=== PATIENT | male | born 1940 | race Caucasian/White ===

== ENCOUNTER 2019-02-24 16:51 | Outpatient (REF) | payer OTHER, SELFPAY ==
[2019-02-24 20:46] LABS: Anion Gap 12.3 mmol/L (3-11); BUN 17 mg/dL (7-18); CO2 26.7 mmol/L (21.0-32.0); CREATININE 1.33 mg/dL (0.70-1.30); Calcium 9.3 mg/dL (8.5-10.1); Chloride 101 mmol/L (98-107); Cholesterol 111 mg/dL (50-200); Estimated GFR 51.87 (mL/min/1.73m2); Glucose 103 mg/dL (70-100); HDL Cholesterol 28 mg/dL (40-60); LDL CHOLESTEROL 63 mg/dL (<100); Potassium 4.4 mmol/L (3.5-5.1); Sodium 140 mmol/L (136-145); Triglyceride 159 mg/dL (30-150)
[2019-02-24 20:47] LABS: HCT 38.5 % (40.0-50.0); HGB 12.8 g/dL (13.5-17.5); Mean Corp. HGB Concentration 33.2 g/dL (32.0-36.0); Mean Corpuscular Hemoglobin 29.5 pg (27.0-33.0); Mean Corpuscular Volume 88.7 fL (80-95); Mean Platelet Volume 10.4 fL (8.0-11.0); Platelet Count 267 x1000/uL (130-400); RBC 4.34 m/cumm (4.50-6.00); RBC Distribution Width 12.7 % (11.8-14.1); White Blood Cell Count 8.26 k/cumm (4.4-10.8)
== END 2019-02-24 17:11 ==
LOC: NCHCN 16:51
PROVIDERS: PCP Family Medicine; Visit Provider Family Medicine
DX: I10 Essential (primary) hypertension (principal); E11.9 Type 2 diabetes mellitus without complications
CPT/HCPCS: 80048; 80061; 83721; 85027

== ENCOUNTER 2019-03-09 10:51 | Day surgery (SDC) | payer OTHER, SELFPAY ==
[2019-03-04 11:20] VITALS: BP 137/81; PULSE 80; RESP 16; TEMP 35.7; O2SAT 98
--- NOTE | 2019-03-08 19:12 | W.PIPPEYE ---
History of Present Illness Chief Complaint: Progressive decreased vision, right eye Narrative: The patient is a 78-year old male with history of progressive decreased vision in both eyes at both distance and near. He notes fuzzy vision all the time and cannot see well enough to drive at night. On examination he was noted to have best corrected vision of 20/40 in each eye in the presence of moderate nuclear cataracts OU. 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 The option of implanting a trabecular micro-bypass stent at the time of cataract surgery was offered to the patient and he wished to proceed. This will be performed if the anatomy is favorable. NOTE: The Chief Complaint, HPI, Past Medical History, Past Surgical History, Family History, Social History, Medications, and complete Ophthalmic Exam with detailed Assessment and Plan have already been documented in the patient's outpatient ophthalmic record and are not covered again in detail here. PFSH Social History Smoking/Tobacco Use Status: Never Alcohol Intake: never Drug use: Never Substance use type: does not use Do you feel safe at home: Yes Do you feel safe in your relationship?: Yes Meds Home Medications Medication Instructions Recorded Confirmed Type losartan-hydrochlorothiazide 1 tab PO DAILY 03/03/19 03/03/19 History metformin 1,000 mg PO BID 03/03/19 03/03/19 History naproxen 500 mg PO BID PRN 03/03/19 03/03/19 History sitagliptin [Januvia] 100 mg PO DAILY 03/03/19 03/03/19 History Allergies Allergy/AdvReac Type Severity Reaction Status Date / Time honey Allergy Unknown Verified 03/03/19 11:31 Exam OCULAR EXAM:: Most recent ocular examination is significant for corrected visual acuity of 20/40 in each eye. Intraocular pressure is 15 OD, 14 OS. Extraocular motility is normal. Pupils equal, round, and reactive without afferent pupillary defect slit-lamp examination is significant for pupils dilating to 5 mm OD, 4.5 mm OS. 2-3+ nuclear cataract is present OU. Dilated funduscopic examination reveals disc cupping of 0.1 OU with normal vessels. There is some macular RPE dropout in both eyes. Peripheral retina and vitreous is normal OU. BRIGHTNESS ACUITY TESTING (BAT):: Brightness acuity testing of the right eye often is 20/40. On the low setting is 20/60, on the medium setting is 20/70. On the high setting brightness acuity testing is 20/70. Assessment and Plan (1) Primary open angle glaucoma (POAG) of right eye, mild stage: Current visit: No Status: Chronic Assessment: Primary open-angle glaucoma, mild stage, controlled on one medication Plan: Trabecular micro-bypass stent following cataract extraction and lens implantation if the anatomy is favorable. (2) Nuclear sclerotic cataract of right eye: Current visit: No Status: Acute Assessment: Visually significant cataract, right eye. Plan: Cataract extraction with intraocular lens implantation, right eye Note: NOTE:: The details of the planned surgery, including the risks, indications,limitations,expectations,outcome and possible complications were explained to the patient. The patient understands the complications including, but not limited to: infection, hemorrhage, posterior dislocation of the lens or nuclear fragments which may require the intervention of a vitreoretinal surgeon, possible loss of the eye, or from anesthetic complications. The patient has been made aware of the option of not having surgery, that vision following surgery may not be equal to that prior to surgery, and that the planned surgery may not achieve the intended results. Following this discussion, which the patient appeared to understand, the patient wishes to proceed with cataract surgery with lens implantation of the affected eye to improve and maximize vision.
--- NOTE | 2019-03-08 19:21 | W.PM.DSUDISC ---
Discharge Plan Disposition Patient Disposition: HOME Condition: Stable Discharge Details Attending Provider: Michael Corbin Primary Care Provider: MUSA ARTEAGA Home Meds and New Rx's Prescriptions: No Action metformin 500 mg Tablet 1,000 mg PO BID RF: 0 naproxen 500 mg Tablet 500 mg PO BID PRNRF: 0 losartan-hydrochlorothiazide 100-12.5 mg Tablet 1 tab PO DAILY RF: 0 Januvia 100 mg Tablet 100 mg PO DAILY RF: 0 Discharge Instructions Stand Alone Forms: Post-op Topical Cataract, Shannon Moore (DSU) Discharge Orders Discharge Orders: Discharge Order (Routine); Ordered 03/09/19 Ordered By: Michael Corbin DS: Diagnosis Discharge Diagnosis (1) Primary open angle glaucoma (POAG) of right eye, mild stage: Status: Chronic (2) Nuclear sclerotic cataract of right eye: Status: Acute (3) Status post cataract extraction and insertion of intraocular lens of right eye: Status: Chronic
[2019-03-09] MEDS: Tetracaine 0.5% 4 ML BTL OD ×4 (11:21→12:14)
[2019-03-09] MEDS: Tropicam./Phenyleph. (1/2.5%) 5 ML BTL OD ×3 (11:21→11:30)
[2019-03-09] MEDS: Lidocaine 1% Pres-Free 5 ML VIAL (12:12)
[2019-03-09] MEDS: Balanced Salt Soln.-PLUS 500 ML BAG (12:12)
[2019-03-09] MEDS: Povidone-Iodine Ophth 30 ML BTL ×2 (12:14→12:59)
[2019-03-09] MEDS: Lidocaine 2% Jelly 6 ML SYR (12:14)
[2019-03-09] MEDS: Trypan Blue 0.06% 0.5 ML SYR (12:29)
--- NOTE | 2019-03-09 13:09 | ROE_ITS ---
Date of service: 03/09/19 Time of Service: 13:05 Operative Note PRE-OP DIAGNOSIS: Cataract, with open angle glaucoma right eye POST-OP DIAGNOSIS: same PROCEDURE: 1. Cataract extraction using phacoemulsification with intraocular lens implant, right eye 2. Insertion of anterior segment aqueous drainage device (Glaukos iStent inject x 1) into trabecular meshwork, right eye 3. Capsular staining with VisionBlue SURGEON: Michael Corbin ANESTHESIA: MAC and local (sub-tenon's anesthetic infiltration) PATHOLOGY: none sent COMPLICATIONS: None Patient was transported to: same day Patient's condition: stable Implants: 1. [employer] / [employer] Tecnis ZCB00 intraocular lens 2. Glaukos iStent inject trabecular micro-bypass stent x 1 Indications: 1. Progressive decreased vision due to cataract, right eye 2. Primary open angle glaucoma, right eye, mild stage 3. Poor red reflex secondary to dense cataract Procedure Description: CATARACT SURGERY OPERATIVE REPORT PREOPERATIVE DIAGNOSIS: 1. Nuclear cataract, right eye 2. Poor red reflex, right eye secondary to #1 3. Primary open-angle glaucoma, right eye, mild stage POSTOPERATIVE DIAGNOSIS: Same OPERATION: 1. Cataract extraction using phacoemulsification with posterior chamber intraocular lens implant, right eye. 2. Insertion of multiple anterior segment aqueous drainage devices (Glaukos iStent inject x 1) into trabecular meshwork, right eye 3. Capsular staining with VisionBlue IOL: IOL Health Care Aide/Model: J[employer]Neotropix Vision / MULU Tecnis ZCB00 IOL Power: + 20.0 diopters IOL Serial Number: [id number] Optic Diameter: 6.0mm Haptic/Overall Diameter: 13.0mm PHACO INFO: Dominik [employer]urion Vision System with OZil and Active Fluidics Cumulative Dispersed Energy (CDE): 17.27 seconds TRABECULAR MICRO-BYPASS STENT INFO: Glaukos iStent inject x 1 Reference Number: [id number] Serial Number: [id number] SURGEON: Michael Corbin MD, MAX ANESTHESIA: Monitored Anesthesia Care (MAC), with local sub-tenon's anesthetic infiltration COMPLICATIONS: None SPECIMENS: None INDICATIONS FOR PROCEDURE: The patient is a 78-year-old gentleman with history of progressive decreased vision in both secondary to the development of significant bilateral nuclear cataracts. He also has primary open-angle glaucoma, mild stage, that is controlled on one medication. The option of cataract surgery was offered to the patient and he felt he was symptomatic enough that he wished to proceed. In addition, he desired implantation of a prior micro-bypass stent at the time of cataract surgery. PROCEDURE: The correct surgical eye was identified and marked as the right eye and the pupil was dilated in the preoperative area using mydriatics and cycloplegics. The dilated pupil size was 6mm. No sedation was given. The patient was brought to the operating room where cardiopulmonary monitoring was instituted and surgical time-out was performed, confirming the correct operative eye and IOL power. Topical anesthesia was administered and ophthalmic povidone-iodine 5% was instilled into the conjunctival fornices. Lidocaine gel was applied to the cornea and the cherie-ocular area was prepped with Betadine 10% solution and draped in the usual sterile fashion for intraocular surgery, including an aperture drape. A Tegaderm transparent film dressing was cut in half and used to cover the lashes and lid margins. Care was taken to sequester the lashes and lid margins under the Tegaderm dressing. A lid speculum was placed between the lids of the operative eye and the Neville-Luz operating microscope was maneuvered into position. Saba scissors were then used to make a conjunctival buttonhole approximately 6mm posterior to the limbus in the inferonasal quadrant. Blunt dissection was carried out to expose bare sclera, and a blunt-tipped sub-tenon?s anesthesia cannula was introduced and passed posteriorly along the globe where non- preserved plain lidocaine was injected into posterior sub-Tenon?s space. A sideport knife was used to make a paracentesis port in the inferiortemporal position. Air was injected into the anterior chamber followed by VisionBlue, which was painted over the lens capsule and then irrigated out with balanced salt solution. The anterior chamber was filled with Healon GV. A 2.4mm keratome knife was used to create a half-thickness groove at the limbus and then to construct a three-plane near-clear corneal tunnel extending 2.0mm into clear cornea in the superiortemporal position. . A flap was raised on the anterior capsule and capsulorhexis forceps were used to complete a continuous curvilinear capsulorhexis of 4.8 mm. Balanced salt solution was then used to perform cortical cleaving hydrodissection and nuclear hydrodelineation until the lens could be freely rotated within the capsular bag. The lens nucleus was then disassembled and removed within the capsular bag and iris plane using phacoemulsification. Residual cortical material was removed using the 45-degree angled silicone I/A tip with 0.3mm port. The posterior capsule was carefully polished to remove as much residual lens epithelial cells as safely possible. The capsular bag was then inflated and the anterior chamber deepened with viscoelastic. The lens implant described above was inserted into the capsular bag using the MULU Nulato Injector. A Kuglen hook was used to dial the IOL into position. Residual viscoelastic was removed from posterior to the IOL, leaving viscoelastic in the anterior chamber. Miostat was then injected into the anterior chamber and the pupil was noted to come down round. The anterior chamber was then slightly over-filled with viscoelastic. The microsope and the patient's head were tilted into the ideal position for viewing of the anterior chamber angle. Viscoelastic was placed on the cornea followed by a surgical gonionlens, and the anterior chamber angle landmarks were identified. The [employer] Condor iStent inject handpiece was introduced into the anterior chamber and the insertion sleeve was retracted once the injector was distal to the pupillary margin. The trocar was advanced through the central portion of the trabecular meshwork and into the back wall of Schlemm's canal in the nasal quadrant, with care taken to ensure the micro-insertion tube was perpendicular to the trabecular meshwork. The trabecular meshwork was lightly dimpled and the stent was injected without difficulty. The same procedure was then performed in the inferiornasal quadrant, but the stent failed to disengage from the trocar. Additional Healon GV was injected into the eye and an attempt was made at the superior nasal quadrant. However, again, the stent failed to disengage from the trocar, so it was decided not to place the second stent. The protective sleeve was then protracted over the tip, taking care to ensure that the stent was maintained on the tip under the protective sleeve, and then removed from the eye.. The implanted stent was then examined and noted to be in good position within the trabecular meshwork. Good blood reflux was noted through the stent opening. The microscope and the patients head were returned to the normal coaxial position. Viscoelatic was then removed from the anterior chamber using the I/A handpiece. The lens implant was noted to center nicely within the capsular bag. The incisions were stromally hydrated, and the anterior chamber was reformed using BSS. Then 0.4cc of moxifloxacin 1.5mg/ml were injected into the capsular bag and anterior chamber. The incisions were checked with a Weck spear and found to be secure. Several drops of ophthalmic povidone-iodine 5% were then applied to the eye followed by two drops of Imprimis combination gatifloxacin/dexamethasone solution. The drapes were removed and a clear plastic protective eye shield was placed over the eye. The patient was then returned to Same Day Surgery in stable condition.
[2019-03-09 13:24] VITALS: BP 154/94; PULSE 68; RESP 16; TEMP 35.9; O2SAT 97
== END 2019-03-09 13:24 | disposition home or self-care (01) ==
LOC: SUR 10:55
PROVIDERS: PCP Family Medicine; Visit Provider Ophthalmology
PROC: (CPT 0191T; principal; 2019-03-09 13:30)
DX: H25.11 Age-related nuclear cataract, right eye (principal); H40.1111 Primary open-angle glaucoma, right eye, mild stage; H35.89 Other specified retinal disorders; E11.9 Type 2 diabetes mellitus without complications; Z79.84 Long term (current) use of oral hypoglycemic drugs; I10 Essential (primary) hypertension
CPT/HCPCS: 0191T; 66982; V2632; C1783

== ENCOUNTER 2019-03-23 10:39 | Day surgery (SDC) | payer OTHER, SELFPAY ==
--- NOTE | 2019-03-22 20:04 | POEE_ITS ---
History of Present Illness Chief Complaint: Progressive decreased vision, left eye Narrative: Patient is a 78-year-old male with history of mild stage open-angle glaucoma OU controlled on one medication developed symptomatic bilateral nuclear cataracts. He noted significant decreased vision when driving at night, and constant for the visit. Patient was acutely measured 20/50 OD, 20/60 OS. He underwent cataract surgery in the right eye on 03/09/2019 with implantation of a single trabecular micro-bypass stent. He now presents for cataract surgery of the left eye, also with implantation of trabecular micro-bypass stent at the time of surgery if the anatomy is favorable. NOTE: The Chief Complaint, HPI, Past Medical History, Past Surgical History, Family History, Social History, Medications, and complete Ophthalmic Exam with detailed Assessment and Plan have already been documented in the patient's out patient ophthalmic record and are not covered again in detail here. PFSH Medical History Primary open angle glaucoma (POAG) of left eye, mild stage (Chronic) Nuclear sclerotic cataract of left eye (Acute) Cataract (Chronic) Diabetes mellitus (Chronic) Gout (Chronic) Hypertension (Chronic) Social History Smoking/Tobacco Use Status: Never Alcohol Intake: never Drug use: Never Substance use type: does not use Do you feel safe at home: Yes Do you feel safe in your relationship?: Yes Meds Home Medications Medication Instructions Recorded Confirmed Type losartan-hydrochlorothiazide 1 tab PO DAILY 03/03/19 03/09/19 History metformin 1,000 mg PO BID 03/03/19 03/09/19 History naproxen 500 mg PO BID PRN 03/03/19 03/09/19 History sitagliptin [Januvia] 100 mg PO DAILY 03/03/19 03/09/19 History Allergies Allergy/AdvReac Type Severity Reaction Status Date / Time honey Allergy Unknown Verified 03/09/19 11:10 Exam OCULAR EXAM:: Most recent ocular examination is significant for best corrected vision of 20/25 in the right eye 20/40 in the left eye. Intraocular pressure is 13 OD 14 OS. Extraocular motility is normal. Pupils equal, round, and reactive without afferent pupillary defect slitlike examination is significant for a well-positioned PCIOL in the right eye with clear posterior capsule. Left eye shows pupil dilated to 4.5 mm with a 2-3+ nuclear cataract. Examination reveals disc cupping of 0.1 OU with a crowded appearance. RPE dropout is present in both maculas with drusen. Peripheral retina and vitreous is normal. BRIGHTNESS ACUITY TESTING (BAT):: Brightness acuity testing of the left eye office 20/60. Lowest 20/70. Medium is 20/70. On the high setting is 20/80. Assessment and Plan (1) Nuclear sclerotic cataract of left eye: Current visit: No Status: Acute Assessment: Visually significant cataract, left eye. Plan: Cataract extraction with intraocular lens implantation, left eye (2) Primary open angle glaucoma (POAG) of left eye, mild stage: Current visit: No Status: Chronic Assessment: Primary open-angle glaucoma, left eye, mild stage, controlled on one medication Plan: Trabecular micro-bypass stent following cataract extraction and lens implantation if the anatomy is favorable. Note: NOTE:: The details of the planned surgery, including the risks, indications,limitations,expectations,outcome and possible complications were explained to the patient. The patient understands the complications including, but not limited to: infection, hemorrhage, posterior dislocation of the lens or nuclear fragments which may require the intervention of a vitreoretinal surgeon, possible loss of the eye, or from anesthetic complications. The patient has been made aware of the option of not having surgery, that vision following surgery may not be equal to that prior to surgery, and that the planned surgery may not achieve the intended results. Following this discussion, which the p atient appeared to understand, the patient wishes to proceed with cataract surgery with lens implantation of the affected eye to improve and maximize vision.
[2019-03-23 10:55] VITALS: BP 126/73; PULSE 89; RESP 16; TEMP 36.3; O2SAT 95
[2019-03-23] MEDS: Tropicam./Phenyleph. (1/2.5%) 5 ML BTL OS ×3 (11:13→11:20)
[2019-03-23] MEDS: Tetracaine 0.5% 4 ML BTL OS ×4 (11:13→13:07)
--- NOTE | 2019-03-23 12:52 | W.PM.DSUDISC ---
Discharge Plan Disposition Patient Disposition: HOME Condition: Stable Discharge Details Attending Provider: Michael Corbin Primary Care Provider: MUSA ARTEAGA Home Meds and New Rx's Prescriptions: No Action metformin 500 mg Tablet 1,000 mg PO BID RF: 0 naproxen 500 mg Tablet 500 mg PO BID PRNRF: 0 losartan-hydrochlorothiazide 100-12.5 mg Tablet 1 tab PO DAILY RF: 0 Januvia 100 mg Tablet 100 mg PO DAILY RF: 0 Discharge Instructions Stand Alone Forms: Post-op Topical Cataract, Shannon Moore (DSU) Discharge Orders Discharge Orders: Discharge Order (Routine); Ordered 03/23/19 Ordered By: Michael Corbin DS: Diagnosis Discharge Diagnosis (1) Nuclear sclerotic cataract of left eye: Status: Resolved (2) Primary open angle glaucoma (POAG) of left eye, mild stage: Status: Chronic (3) Status post cataract extraction and insertion of intraocular lens of left eye: Status: Acute
[2019-03-23] MEDS: Lidocaine 2% Jelly 6 ML SYR (13:07)
[2019-03-23] MEDS: Povidone-Iodine Ophth 30 ML BTL ×2 (13:07→13:47)
[2019-03-23] MEDS: Balanced Salt Soln.-PLUS 500 ML BAG (13:14)
[2019-03-23] MEDS: Trypan Blue 0.06% 0.5 ML SYR (13:14)
[2019-03-23] MEDS: Lidocaine 1% Pres-Free 5 ML VIAL (13:14)
--- NOTE | 2019-03-23 13:55 | W.PM.OP ---
Date of service: 03/23/19 Time of Service: 13:55 Operative Note PRE-OP DIAGNOSIS: Cataract, with open angle glaucoma left eye PROCEDURE: 1. Cataract extraction using phacoemulsification with intraocular lens implant, left eye 2. Insertion of multiple anterior segment aqueous drainage devices (Glaukos iStent inject x 2) into trabecular meshwork, left eye 3. Capsular staining with vision blue SURGEON: Michael Corbin ANESTHESIA: MAC and local (subtenon's local anesthetic infiltration) ESTIMATED BLOOD LOSS: 0 PATHOLOGY: none sent COMPLICATIONS: None Patient was transported to: same day Patient's condition: stable Implants: 1. [employer]ree [employer] Vision / [employer] Tecnis ZCB00 intraocular lens 2. Glaukos iStent inject trabecular micro-bypass stent x 2 Indications: 1. Progressive decreased vision due to cataract, left eye 2. Primary open angle glaucoma, left eye 3. Poor red reflex, left eye, secondary to #1 Procedure Description: CATARACT SURGERY OPERATIVE REPORT PREOPERATIVE DIAGNOSIS: 1. Dense nuclear cataract, left eye 2. Poor red reflex, left eye secondary to #1 3. Primary open angle glaucoma, mild stage, left eye POSTOPERATIVE DIAGNOSIS: Same OPERATION: 1. Cataract extraction using phacoemulsification with posterior chamber intraocular lens implant, left eye. 2. Insertion of multiple anterior segment aqueous drainage devices (Glaukos iStent inject x 2) into trabecular meshwork, left eye 3. Capsular staining with VisionBlue IOL: IOL Police Matron/Model: J&J Vision / MULU Tecnis ZCB00 IOL Power: + 20.0 diopters IOL Serial Number: [id number] Optic Diameter: 6.0mm Haptic/Overall Diameter: 13.0mm PHACO INFO: Dominik [employer]urion Vision System with OZil and Active Fluidics Cumulative Dispersed Energy (CDE): 16.55 seconds TRABECULAR MICRO-BYPASS STENT INFO: Glaukos iStent inject x 2 Reference Number: G2 MIS Serial Number: [id number] SURGEON: Michael Corbin MD, MAX ANESTHESIA: Monitored Anesthesia Care (MAC), with local sub-tenon's anesthetic infiltration COMPLICATIONS: None SPECIMENS: None INDICATIONS FOR PROCEDURE: Patient is a 78-year-old gentleman who presented with complaints of diminished visual acuity in both eyes secondary to the development of bilateral nuclear cataract. In addition, he has mild stage open-angle glaucoma, controlled on one medication. The option of cataract surgery was offered to the patient and he wished to proceed. He has already undergone cataract surgery with implantation of one iStent injected in the right eye on 03/09/2019. He now presents for cataract surgery with glaucoma stent placement of the left eye. PROCEDURE: The correct surgical eye was identified and marked as the left eye and the pupil was dilated in the preoperative area using mydriatics and cycloplegics. The dilated pupil size was 6.0 mm. Oral sedation was administered in the form of an Imprimis MKO Melt (midazolam 3mg/ketamine 25mg/ondansetron 2mg). The patient was brought to the operating room where cardiopulmonary monitoring was instituted and surgical time-out was performed, confirming the correct operative eye and IOL power. Topical anesthesia was administered and ophthalmic povidone-iodine 5% was instilled into the conjunctival fornices. Lidocaine gel was applied to the cornea and the cherie-ocular area was prepped with Betadine 10% solution and draped in the usual sterile fashion for intraocular surgery, including an aperture drape. A Tegaderm transparent film dressing was cut in half and used to cover the lashes and lid margins. Care was taken to sequester the lashes and lid margins under the Tegaderm dressing. A lid speculum was placed between the lids of the operative eye and the Neville-Luz operating microscope was maneuvered into position. Saba scissors were then used to make a conjunctival buttonhole approximately 6mm posterior to the limbus in the inferonasal quadrant. Blunt dissection was carried out to expose bare sclera, and a blunt-tipped sub-tenon?s anesthesia cannula was introduced and passed posteriorly along the globe where 4cc of a 50:50 mixture of 1% non-preserved plain lidocaine/0.75% ropivacaine was injected into posterior sub-Tenon?s space. A sideport knife was used to make a paracentesis port in the superior/superiortemporal position and the anterior chamber was filled there, followed by VisionBlue, which was painted over the length capsule and then irrigated out with balanced salt solution. The anterior chamber was then filled with Healon GV. A 2.4mm keratome knife was used to create a half-thickness groove at the limbus and then to construct a three-plane near-clear corneal tunnel extending 2.0mm into clear cornea in the temporal position. . A flap was raised on the anterior capsule and capsulorhexis forceps were used to complete a continuous curvilinear capsulorhexis of about 4.8 mm. Balanced salt solution was then used to perform cortical cleaving hydrodissection and nuclear hydrodelineation until the lens could be freely rotated within the capsular bag. The lens nucleus was then disassembled and removed within the capsular bag and iris plane using phacoemulsification. Residual cortical material was removed using the 45-degree angled silicone I/A tip with 0.3mm port. The posterior capsule was carefully polished to remove as much residual lens epithelial cells as safely possible. The capsular bag was then inflated and the anterior chamber deepened with viscoelastic. The lens implant described above was inserted into the capsular bag using the MULU [place] Injector. A Kuglen hook was used to dial the IOL into position. Residual viscoelastic was removed from posterior to the IOL, leaving viscoelastic in the anterior chamber. Miostat was then injected into the anterior chamber and the pupil was noted to come down round. The anterior chamber was then slightly over-filled with viscoelastic. The microsope and the patient's head were tilted into the ideal position for viewing of the anterior chamber angle. Viscoelastic was placed on the cornea followed by a surgical gonionlens, and the anterior chamber angle landmarks were identified. The [employer] iStent inject handpiece was introduced into the anterior chamber and the insertion sleeve was retracted once the injector was distal to the pupillary margin. The trocar was advanced through the central portion of the trabecular meshwork and into the back wall of Schlemm's canal in the nasal quadrant, with care taken to ensure the micro-insertion tube was perpendicular to the trabecular meshwork. The trabecular meshwork was lightly dimpled and the stent was injected without difficulty. The same procedure was then performed in the [facility] Both stents were then examined and noted to be in good position within the trabecular meshwork. A significant amount of blood reflux was noted through the iStent apertures. The microscope and the patients head were returned to the normal coaxial position. Viscoelatic was then removed from the anterior chamber using the I/A handpiece. The lens implant was noted to center nicely within the capsular bag. The incisions were stromally hydrated, and the anterior chamber was reformed using BSS. Then 0.4cc of moxifloxacin 1.5mg/ml were injected into the capsular bag and anterior chamber. The incisions were checked with a Weck spear and found to be secure. Several drops of ophthalmic povidone-iodine 5% were then applied to the eye followed by two drops of Imprimis combination gatifloxacin/dexamethasone solution. The drapes were removed and a clear plastic protective eye shield was placed over the eye. The patient was then returned to Same Day Surgery in stable condition.
--- NOTE | 2019-03-23 14:01 | ROE_ITS ---
Date of service: 03/23/19 Time of Service: 13:55 Operative Note PRE-OP DIAGNOSIS: Cataract, with open angle glaucoma left eye PROCEDURE: 1. Cataract extraction using phacoemulsification with intraocular lens implant, left eye 2. Insertion of multiple anterior segment aqueous drainage devices (Glaukos iStent inject x 2) into trabecular meshwork, left eye 3. Capsular staining with vision blue SURGEON: Michael Corbin ANESTHESIA: MAC and local (subtenon's local anesthetic infiltration) ESTIMATED BLOOD LOSS: 0 PATHOLOGY: none sent COMPLICATIONS: None Patient was transported to: same day Patient's condition: stable Implants: 1. [employer] Vision / [employer] Tecnis ZCB00 intraocular lens 2. Glaukos iStent inject trabecular micro-bypass stent x 2 Indications: 1. Progressive decreased vision due to cataract, left eye 2. Primary open angle glaucoma, left eye 3. Poor red reflex, left eye, secondary to #1 Procedure Description: CATARACT SURGERY OPERATIVE REPORT PREOPERATIVE DIAGNOSIS: 1. Dense nuclear cataract, left eye 2. Poor red reflex, left eye secondary to #1 3. Primary open angle glaucoma, mild stage, left eye POSTOPERATIVE DIAGNOSIS: Same OPERATION: 1. Cataract extraction using phacoemulsification with posterior chamber intraocular lens implant, left eye. 2. Insertion of multiple anterior segment aqueous drainage devices (Glaukos iStent inject x 2) into trabecular meshwork, left eye 3. Capsular staining with VisionBlue IOL: IOL Coffee Roaster/Model: J&J Vision / MULU Tecnis ZCB00 IOL Power: + 20.0 diopters IOL Serial Number: [id number] Optic Diameter: 6.0mm Haptic/Overall Diameter: 13.0mm PHACO INFO: Dominik [employer] Vision System with OZil and Active Fluidics Cumulative Dispersed Energy (CDE): 16.55 seconds TRABECULAR MICRO-BYPASS STENT INFO: Glaukos iStent inject x 2 Reference Number: G2 MIS Serial Number: [id number] SURGEON: Michael Corbin MD, MAX ANESTHESIA: Monitored Anesthesia Care (MAC), with local sub-tenon's anesthetic infiltration COMPLICATIONS: None SPECIMENS: None INDICATIONS FOR PROCEDURE: Patient is a 78-year-old gentleman who presented with complaints of diminished visual acuity in both eyes secondary to the development of bilateral nuclear cataract. In addition, he has mild stage open-angle glaucoma, controlled on one medication. The option of cataract surgery was offered to the patient and he wished to proceed. He has already undergone cataract surgery with implantation of one iStent injected in the right eye on 03/09/2019. He now presents for cataract surgery with glaucoma stent placement of the left eye. PROCEDURE: The correct surgical eye was identified and marked as the left eye and the pupil was dilated in the preoperative area using mydriatics and cyclople gics. The dilated pupil size was 6.0 mm. Oral sedation was administered in the form of an Imprimis MKO Melt (midazolam 3mg/ketamine 25mg/ondansetron 2mg). The patient was brought to the operating room where cardiopulmonary monitoring was instituted and surgical time-out was performed, confirming the correct operative eye and IOL power. Topical anesthesia was administered and ophthalmic povidone-iodine 5% was instilled into the conjunctival fornices. Lidocaine gel was applied to the cornea and the cherie-ocular area was prepped with Betadine 10% solution and draped in the usual sterile fashion for intraocular surgery, including an aperture drape. A Tegaderm transparent film dressing was cut in half and used to cover the lashes and lid margins. Care was taken to sequester the lashes and lid margins under the Tegaderm dressing. A lid speculum was placed between the lids of the operative eye and the Neville-Luz operating microscope was maneuvered into position. Saba scissors were then used to make a conjunctival buttonhole approximately 6mm posterior to the limbus in the inferonasal quadrant. Blunt dissection was carried out to expose bare sclera, and a blunt-tipped sub-tenon?s anesthesia cannula was introduced and passed posteriorly along the globe where 4cc of a 50:50 mixture of 1% non-preserved plain lidocaine/0.75% ropivacaine was injected into posterior sub-Tenon?s space. A sideport knife was used to make a paracentesis port in the superior/superiortemporal position and the anterior chamber was filled there, followed by VisionBlue, which was painted over the l ength capsule and then irrigated out with balanced salt solution. The anterior chamber was then filled with Healon GV. A 2.4mm keratome knife was used to create a half-thickness groove at the limbus and then to construct a three-plane near-clear corneal tunnel extending 2.0mm into clear cornea in the temporal position. . A flap was raised on the anterior capsule and capsulorhexis forceps were used to complete a continuous curvilinear capsulorhexis of about 4.8 mm. Balanced salt solution was then used to perform cortical cleaving hydrodissection and nuclear hydrodelineation until the lens could be freely rotated within the capsular bag. The lens nucleus was then disassembled and removed within the capsular bag and iris plane using phacoemulsification. Residual cortical material was removed using the 45-degree angled silicone I/A tip with 0.3mm port. The posterior capsule was carefully polished to remove as much residual lens epithelial cells as safely possible. The capsular bag was then inflated and the anterior chamber deepened with viscoelastic. The lens implant described above was inserted into the capsular bag using the [employer] [place] Injector. A Kuglen hook was used to dial the IOL into position. Residual viscoelastic was removed from posterior to the IOL, leaving viscoelastic in the anterior chamber. Miostat was then injected into the anterior chamber and the pupil was noted to come down round. The anterior chamber was then slightly over-filled with viscoelastic. The microsope and the patient's head were tilted into the ideal position for viewing of the anterior chamber angle. Viscoelastic was placed on the cornea followed by a surgical gonionlens, and the anterior chamber angle landmarks were identified. The [employer] iStent inject handpiece was introduced into the anterior chamber and the insertion sleeve was retracted once the injector was distal to the pupillary margin. The trocar was advanced through the central portion of the trabecular meshwork and into the back wall of Schlemm's canal in the nasal quadrant, with care taken to ensure the micro-insertion tube was perpendicular to the trabecular meshwork. The trabecular meshwork was lightly dimpled and the stent was injected without difficulty. The [facility] Both stents were then examined and noted to be in good position within the trabecular meshwork. A significant amount of blood reflux was noted through the iStent apertures. The microscope and the patients head were returned to the normal coaxial position. Viscoelatic was then removed from the anterior chamber using the I/A handpiece. The lens implant was noted to center nicely within the capsular bag. The incisions were stromally hydrated, and the anterior chamber was reformed using BSS. Then 0.4cc of moxifloxacin 1.5mg/ml were injected into the capsular bag and anterior chamber. The incisions were checked with a Weck spear and found to be secure. Several drops of ophthalmic povidone-iodine 5% were then applied to the eye followed by two drops of Imprimis combination gatifloxacin/dexamethasone solution. The drapes were removed and a clear plastic protective eye shield was placed over the eye. The patient was then returned to Same Day Surgery in stable condition.
[2019-03-23 14:14] VITALS: BP 110/65; PULSE 85; RESP 16; TEMP 36.5; O2SAT 95
== END 2019-03-23 14:26 | disposition home or self-care (01) ==
PROVIDERS: PCP Family Medicine; Visit Provider Ophthalmology
PROC: (CPT 0191T; principal; 2019-03-23 13:30)
DX: H25.12 Age-related nuclear cataract, left eye (principal); H40.1112 Primary open-angle glaucoma, right eye, moderate stage; H35.89 Other specified retinal disorders; Z98.41 Cataract extraction status, right eye; Z96.1 Presence of intraocular lens; E11.9 Type 2 diabetes mellitus without complications; Z79.84 Long term (current) use of oral hypoglycemic drugs; I10 Essential (primary) hypertension
CPT/HCPCS: 0191T; 66984; V2632; C1783; J3490

== ENCOUNTER 2020-05-24 19:03 | Outpatient (REF) | payer OTHER, SELFPAY ==
[2020-05-24 21:52] LABS: ALT 27 U/L (16-63); AST 19 U/L (15-37); Albumin 4.1 g/dL (3.4-5.0); Alkaline Phosphatase 72 U/L (46-116); Anion Gap 11.9 mmol/L (3-11); Bilirubin, Total 0.5 mg/dL (0.2-1.0); CO2 25.1 mmol/L (21.0-32.0); CREATININE 1.48 mg/dL (0.70-1.30); Calcium 9.8 mg/dL (8.5-10.1); Chloride 101 mmol/L (98-107); Estimated GFR 45.73 (mL/min/1.73m2); Glucose 129 mg/dL (74-106); Potassium 4.7 mmol/L (3.5-5.1); Sodium 138 mmol/L (136-145); Total Protein 7.8 g/dL (6.4-8.2)
[2020-05-24 22:21] LABS: BUN 33 mg/dL (7-18)
== END 2020-05-24 19:23 ==
LOC: NCHCN 19:03
PROVIDERS: PCP Family Medicine; Visit Provider Family Medicine
DX: I10 Essential (primary) hypertension (principal)
CPT/HCPCS: 80053

== ENCOUNTER 2021-05-09 09:18 | Outpatient (REF) | payer OTHER, SELFPAY ==
[2021-05-09 14:42] LABS: Hemoglobin A1C 7.4 % (<5.7)
[2021-05-09 15:05] LABS: Anion Gap 8.5 mmol/L (3-11); BUN 23 mg/dL (7-18); CO2 27.5 mmol/L (21.0-32.0); CREATININE 1.3 mg/dL (0.70-1.30); Calcium 9.6 mg/dL (8.5-10.1); Chloride 104 mmol/L (98-107); Estimated GFR 52.98 (mL/min/1.73m2); Glucose 124 mg/dL (74-106); Potassium 4.8 mmol/L (3.5-5.1); Sodium 140 mmol/L (136-145)
== END 2021-05-09 09:19 | disposition home or self-care (01) ==
LOC: NCHCN 09:18
PROVIDERS: PCP Family Medicine; Visit Provider Family Medicine
DX: I10 Essential (primary) hypertension (principal); E11.9 Type 2 diabetes mellitus without complications
CPT/HCPCS: 80048; 83036

== ENCOUNTER 2022-07-27 19:59 | Outpatient (REF) | payer MEDICARE, SELFPAY ==
[2022-07-27 15:06] LABS: Anion Gap 5.6 mmol/L (3-11); BUN 26 mg/dL (7-18); CO2 29.4 mmol/L (21.0-32.0); CREATININE 1.4 mg/dL (0.70-1.30); Calcium 9.5 mg/dL (8.5-10.1); Chloride 100 mmol/L (98-107); Estimated GFR 50.18 (mL/min/1.73m2); Glucose 116 mg/dL (74-106); Potassium 4.9 mmol/L (3.5-5.1); Sodium 135 mmol/L (136-145)
[2022-07-27 15:14] LABS: Hemoglobin A1C 6.6 % (<5.7)
== END 2022-07-27 20:00 | disposition home or self-care (01) ==
LOC: NCHCN 19:59
PROVIDERS: PCP Family Medicine; Visit Provider Family Medicine
DX: E11.9 Type 2 diabetes mellitus without complications (principal); I10 Essential (primary) hypertension
CPT/HCPCS: 80048; 83036

== ENCOUNTER 2023-11-29 14:52 | Outpatient (REF) | payer MEDICARE, SELFPAY ==
--- OUTSIDE RECORDS SUMMARY | 2023-11-29 14:59 | XMS_ITS | CCD ---
Author Name Unknown Address [address] [place] [phone] Organization Unknown Address [address], [place] [id number] Care Team Providers Care [employer] Mixer Operator Name Role Phone JENNIFER MICHEL Attending Physician [phone] GINI REEVES Er Physician 5 [phone] BRITTON Crocker Registered Nurse [phone] Vital Signs Vital Sign Value Unit Date/Time Recent/Initial ? BMI (Body Mass Index) 30.79 kg/m^2 07/05/2023 17: 46 Initial VS Weight Measured 185 lbs 07/05/2023 17:46 Ini tial VS Height 65 in 07/05/2023 17:46 Initial VS BSA (Body Surface Area) 1.96 m^2 07/05/2023 1 7:46 Initial VS BP Systolic 119 mmHg 07/05/2023 17:46 Initial VS BP Diastolic 70 mmHg 07/05/2023 17:46 Initia l VS Respiratory Rate 18 bpm 07/05/2023 17:46 In itial VS Heart Rate 92 bpm 07/05/2023 17:46 Initial VS O2 % BldC Oximetry 97 % 07/05/2023 17:46 Initial VS Body Temperature 36.6 degrees 07/05/2023 17:46 In itial VS BP Systolic 112 mmHg 07/05/2023 19:37 Most Re cent VS BP Diastolic 78 mmHg 07/05/2023 19:37 Most R ecent VS Respiratory Rate 18 bpm 07/05/2023 19:[address] Recent VS Heart Rate 89 bpm 07/05/2023 19:37 Most Rec ent VS O2 % BldC Oximetry 99 % 07/05/2023 19:37 Most Recent VS Allergies Allergy Code Allergy Type Reaction Status No Known Drug Allergies 0 No known drug allergies Active Procedures Unknown or Not Available. History of Immunizations Unknown or Not Available. Problems Unknown or Not Available. Results Unknown or Not Available. Active Medications Medications Administered During Visit Unknown or Not Available. Encounters Encounter Diagnosis Diagnosis Code Start Date Toxic effect of venom of bee s, accidental (unintentional), initial encounter [id number] 07/05/2023 Social History Unknown or Not Available. Patient Decision Aids Unknown or Not Available. Discharge Instructions You were admitted to [facility] on 07/05/2023 17:36 with a principal diagnosis of Toxic effect of venom of bees, accidental (unintentional), initial encounter You were discharged from [facility] on 07/05/2023 19:43 Should you have any questions prior to discharge, please contact a member of your healthcare team. If you have left the hospital and have any questions, please contact your primary care physician. Chief Complaint and Reason For Visit Chief Complaint Date of Onset ALLERGIC REACTION TO BEE STING Function Status Unknown or Not Available. Plan of Care Unknown or Not Available. Referral/Transition of Care Unknown or Not Available.
[2023-11-29 21:33] LABS: Hemoglobin A1C 7.4 % (<5.7)
[2023-11-29 21:34] LABS: Anion Gap 7.6 mmol/L (3-11); BUN 19 mg/dL (7-18); CO2 27.4 mmol/L (21.0-32.0); CREATININE 1.4 mg/dL (0.70-1.30); Calcium 9.8 mg/dL (8.5-10.1); Calculated LDL 96 mg/dL (<100); Chloride 102 mmol/L (98-107); Cholesterol 160 mg/dL (<200); Estimated GFR 49.56 (mL/min/1.73m2); Glucose 118 mg/dL (74-106); HDL Cholesterol 36 mg/dL (40-60); Potassium 4.6 mmol/L (3.5-5.1); Sodium 137 mmol/L (136-145); Triglyceride 141 mg/dL (<150)
== END 2023-11-29 14:53 | disposition home or self-care (01) ==
LOC: NCHCN 14:52
PROVIDERS: PCP Family Medicine; Visit Provider Family Medicine
DX: E11.9 Type 2 diabetes mellitus without complications (principal); R79.89 Other specified abnormal findings of blood chemistry; Z13.6 Encounter for screening for cardiovascular disorders
CPT/HCPCS: 80048; 80061; 83036

== ENCOUNTER 2025-02-18 22:02 | Outpatient (REF) | payer MEDICARE, SELFPAY ==
[2025-02-18 21:21] LABS: Anion Gap 7.9 mmol/L (3-11); BUN 31 mg/dL (7-18); CO2 29.1 mmol/L (21.0-32.0); CREATININE 1.4 mg/dL (0.70-1.30); Calcium 9.9 mg/dL (8.5-10.1); Chloride 102 mmol/L (98-107); Estimated GFR 49.25 (mL/min/1.73m2); Glucose 134 mg/dL (74-106); Sodium 139 mmol/L (136-145)
[2025-02-18 21:26] LABS: Hemoglobin A1C 7.4 % (<5.7)
== END 2025-02-18 22:03 | disposition home or self-care (01) ==
LOC: NCHCN 22:02
PROVIDERS: PCP Family Medicine; Visit Provider Family Medicine
DX: E11.9 Type 2 diabetes mellitus without complications (principal)
CPT/HCPCS: 80048; 83036